=== PATIENT | female | born 1945 | race African-American/Black ===

== ENCOUNTER 2020-06-25 12:13 | Emergency (ER) | payer MEDICARE ==
[~2020-06-25] VITALS: Ht 165.1 cm; Wt 76.6 kg
[2020-06-25] MEDS ORDERED: vit C PO (12:26)
[2020-06-25] MEDS ORDERED: tumeric PO (12:26)
[2020-06-25] MEDS ORDERED: AMLO10TA PO (12:26)
[2020-06-25] MEDS ORDERED: MULT-90 PO (12:26)
[2020-06-25] MEDS ORDERED: NS 1,000 ML IV SCH (12:40)
[2020-06-25 12:55] LABS: BASO # 0.1 10^3/uL (0.0-0.2); BASO % 0.8 % (0.0-1.0); EOS % 0.5 % (0.0-3.0); HEMATOCRIT 44.6 % (36.0-47.0); LYMPH # 2.6 10^3/uL (1.5-5.0); LYMPH % 40.5 % (24.0-44.0); MEAN CORPUSCULAR HEMOGLOBIN 28.9 pg (27.0-33.0); MEAN CORPUSCULAR HGB CONC 31.4 g/dl (32.0-36.5); MONO # 0.4 10^3/uL (0.0-0.8); MONO % 5.9 % (2.0-8.0); NEUTROPHILS # 3.3 10^3/uL (1.5-8.5); NEUTROPHILS % 52.1 % (36.0-66.0); PLATELET COUNT, AUTOMATED 230 10^3/uL (150-450); RED BLOOD COUNT 4.85 10^6/uL (4.00-5.40); WHITE BLOOD COUNT 6.3 10^3/uL (4.0-10.0)
--- NOTE | 2020-06-25 12:59 | REP ---
INDICATION: Syncope/near-syncope. COMPARISON: No comparison study. TECHNIQUE: Portable upright AP chest radiograph. FINDINGS: The lungs are well inflated and free of infiltrate. Pleural angles are sharp. Heart size is normal. Pulmonary vasculature is not increased. Monitoring electrodes are seen. The thoracic aorta is somewhat tortuous and calcific. IMPRESSION: No active disease. <Electronically signed by Randy Amos > 06/25/20 [id number]
--- NOTE | 2020-06-25 13:00 | REP ---
INDICATION: NEURO SYMPTOMS. COMPARISON: None. TECHNIQUE: Axial CT images with multiplanar reformations. FINDINGS: No acute bleed or acute large vessel territorial infarct. Ventricles, cisterns and sulci are within normal limits. No mass effect or midline shift. No abnormal fluid collections. There is a metallic surgical implantation over the left frontal bone with a linear tract of encephalomalacia extending toward the anterior horn of the left lateral ventricle. Scattered ill-defined hypodensities seen throughout the white matter is most consistent with sequelae of chronic microvascular ischemic disease. Paranasal sinuses and mastoid air cells are clear IMPRESSION: No acute findings. Age-related volume loss and white matter changes. Evidence of prior surgical intervention as described. <Electronically signed by Cb Arredondo > 06/25/20 [id number]
[2020-06-25 13:32] LABS: BLOOD UREA NITROGEN 13 MG/DL (7-18); CALCIUM LEVEL 9.2 MG/DL (8.8-10.2); CARBON DIOXIDE LEVEL 30 MEQ/L (21-32); CHLORIDE LEVEL 106 MEQ/L (98-107); CK-MB VALUE MASS 1.2 NG/ML (<3.6); CPK CREATINE PHOSPHOKINASE 112 U/L (26-192); CREATININE FOR GFR 0.85 MG/DL (0.55-1.30); ETHYL ALCOHOL (ETHANOL) < 0.003 % (0.000-0.010); GLOMERULAR FILTRATION RATE > 60.0 (>39); GLUCOSE, FASTING 125 MG/DL (70-100); MAGNESIUM LEVEL 2.2 MG/DL (1.8-2.4); MB/CK RELATIVE INDEX 1.07 (< OR =4); POTASSIUM SERUM 3.6 MEQ/L (3.5-5.1); SODIUM LEVEL 143 MEQ/L (136-145); TROPONIN I < 0.02 NG/ML (< 0.10)
[2020-06-25 14:00] VITALS: BP 153/92
--- NOTE | 2020-06-27 12:24 | ECGEPIP ---
[facility] - ED Test Date: 2020-06-25 Pat Name: AYAAN ARIZA Department: Room: - Gender: Female Tank Cooper: kevin : 1945 Requested By: PATRICIA PINEDO Order Number: [id number] Reading MD: Desi Palmer Measurements Intervals [place] Rate: 71 P: 54 RI: 178 QRS: -24 QRSD: 76 T: 58 QT: 424 QTc: 460 Interpretive Statements Normal sinus rhythm Minimal voltage criteria for LVH, may be normal variant ( R in aVL ) Nonspecific T wave abnormality No prior Electronically Signed on 06-27-2020 12:24:24 EDT by Desi Palmer
== END 2020-06-25 14:21 | disposition home or self-care (01) ==
LOC: M ED 12:13
DX: R55 Syncope and collapse (principal); I51.9 Heart disease, unspecified; I10 Essential (primary) hypertension; Z87.891 Personal history of nicotine dependence